=== PATIENT | male | born 1945 | race Caucasian/White ===

== ENCOUNTER 2018-05-16 16:33 | Emergency (ER) | payer MEDICARE ==
[~2018-05-16] VITALS: Ht 180.3 cm; Wt 92.6 kg
[~2018-05-16 16:33] MED LIST: APIX5TAB PO; FINA5TAB4 PO; Fish oil PO; Flomax; LORA10CA PO; MULT-257 PO; PRAV40TA2 PO; RIVA20TA PO; SOTA120T26 PO; UBID100C41 PO
[2018-05-16 17:25] LABS: MICROSCOPIC AUTO
[2018-05-16 17:29] LABS: CULTURE INDICATED? YES
[2018-05-16] MEDS ORDERED: IBUPROFEN 200 MG TABLET ONE (17:36)
[2018-05-16 17:56] LABS: BASOPHILS # (AUTO) 0.03 x10^3/uL (0-0.1); BASOPHILS % (AUTO) 1 % (0-1); EOSINOPHILS # (AUTO) 0.05 x10^3/uL (0-0.4); EOSINOPHILS % (AUTO) 1 % (1-7); LYMPHOCYTES # (AUTO) 0.74 x10^3/uL (1-3.4); LYMPHOCYTES % (AUTO) 14 % (22-44); MD NO; MEAN CORPUSCULAR HEMOGLOBIN 32.3 pg (27.5-34.5); MEAN CORPUSCULAR HGB CONC 34.6 g/dL (33.2-36.2); MEAN CORPUSCULAR VOLUME 93.3 fL (81-97); MEAN PLATELET VOLUME 8.1 fL (7.4-10.4); MONOCYTES # (AUTO) 0.59 x10^3/uL (0.2-0.8); MONOCYTES % (AUTO) 11 % (2-9); NEUTROPHILS # (AUTO) 3.96 x10^3/uL (1.8-6.8); NEUTROPHILS % (AUTO) 74 % (42-75); PLATELET COUNT 203 x10^3/uL (130-400); RED BLOOD COUNT 4.87 x10^6/uL (4.38-5.82); RED CELL DISTRIBUTION WIDTH 14.4 % (9.4-14.8)
[2018-05-16] MEDS ORDERED: IBUPROFEN 200 MG TABLET PO ONE (18:00)
[2018-05-16 18:01] LABS: ANION GAP 6 mmol/L (5-15); CALCIUM 9.6 mg/dL (8.5-10.1); CHLORIDE 110 mmol/L (98-107); CREATININE 1.52 mg/dL (0.7-1.3)
[2018-05-16 18:16] VITALS: BP 129/73
== END 2018-05-16 18:28 | disposition home or self-care (01) ==
LOC: ED 18:20
DX: N20.0 Calculus of kidney (principal); N28.9 Disorder of kidney and ureter, unspecified; Z87.442 Personal history of urinary calculi
CPT/HCPCS: 36415; 74176; 80048; 81001; 85025; 87086; 99285